=== PATIENT | female | born 1990 | race African-American/Black ===

== ENCOUNTER 2020-10-25 11:25 | Emergency (ER) | payer MEDICAID ==
[~2020-10-25] VITALS: Ht 167.6 cm; Wt 57.0 kg
[2020-10-25] MEDS ORDERED: LORAZEPAM 1MG TABLET PO ONE (14:30)
[2020-10-25 14:37] LABS: *BARBITURATES SCREEN URINE NEGATIVE (NEGATIVE); *BENZODIAZEPINES SCREEN URINE NEGATIVE (NEGATIVE); *COCAINE SCREEN URINE NEGATIVE (NEGATIVE); METHADONE URINE SCREEN NEGATIVE (NEGATIVE)
[2020-10-25 14:38] LABS: OPIATES URINE SCREEN NEGATIVE (NEGATIVE); PHENCYCLIDINE URINE SCREEN NEGATIVE (NEGATIVE)
[2020-10-25 14:39] VITALS: BP 106/73
[2020-10-25 14:40] LABS: *AMPHETAMINES SCREEN URINE PRESUMTIVE POSITIVE (NEGATIVE); CANNABINOID URINE SCREEN PRESUMTIVE POSITIVE (NEGATIVE)
== END 2020-10-25 14:57 | disposition home or self-care (01) ==
LOC: ER 11:25
DX: F10.988 Alcohol use, unspecified with other alcohol-induced disorder (principal); F15.180 Other stimulant abuse with stimulant-induced anxiety disorder; F12.180 Cannabis abuse with cannabis-induced anxiety disorder; R03.0 Elevated blood-pressure reading, without diagnosis of hypertension
CPT/HCPCS: 80305; 81025; 99284